=== PATIENT | male | born 1940 | race Caucasian/White ===

== ENCOUNTER 2016-12-04 13:23 | Inpatient (IN) | payer MEDICARE ==
[~2016-12-04] VITALS: Ht 177.8 cm; Wt 85.1 kg
[2016-12-04] MEDS ORDERED: INSU100I28 SQ (13:52)
[2016-12-04] MEDS ORDERED: FENO160T PO (13:52)
[2016-12-04] MEDS ORDERED: AMLO10TA2 PO (13:52)
[2016-12-04] MEDS ORDERED: INSU100V13 SQ (13:52)
[2016-12-04] MEDS ORDERED: ALPR0.254 PO (13:52)
[2016-12-04] MEDS ORDERED: INSU100V8 SQ (13:52)
[2016-12-04] MEDS ORDERED: LEVO100T5 PO (13:52)
[2016-12-04] MEDS ORDERED: HEPARIN 5,000 UNITS/ML, 1ML IV ONE (14:00)
[2016-12-04] MEDS ORDERED: HEPARIN 5,000 UNITS/ML, 1ML IV PRN (14:00)
[2016-12-04] MEDS ORDERED: HEPARIN 25,000 UNITS/500ML PMX 500 ML IV PRN (14:00)
[2016-12-04 14:11] LABS: IS PT STATUS REG ER OR PRE ER? YES
[2016-12-04] MEDS ORDERED: SODIUM CHLORIDE FLUSH 10ML SYR IVF PRN (14:30)
[2016-12-04] MEDS ORDERED: HEPARIN 25,000 UNITS/500ML PMX 500 ML ONE (14:44)
[2016-12-04] MEDS ORDERED: HEPARIN 5,000 UNITS/ML, 1ML ONE (14:44)
[2016-12-04 15:48] VITALS: BP 149/65
[2016-12-04 16:00] VITALS: BP 149/65
[2016-12-04] MEDS ORDERED: OMNIPAQUE 350 MG/ML, 100ML BOTTLE ONE (17:27)
[2016-12-04] MEDS: SODIUM CHLORIDE 0.9% 1,000 ML IV SCH (17:54)
[2016-12-04] MEDS ORDERED: ONDANSETRON 2MG/ML, 2ML IVPush PRN (19:00)
[2016-12-04] MEDS ORDERED: ENALAPRILAT 1.25 MG/ML, 2ML IVPush PRN (19:00)
[2016-12-04] MEDS ORDERED: OXYcodone IR 5MG TABLET PO PRN (19:00)
[2016-12-04] MEDS ORDERED: hydrALAzine 20 MG/ML, 1ML IVPush PRN (19:00)
[2016-12-04] MEDS ORDERED: POLYETHYLENE GLYCOL 17 GM PACKET PO PRN (19:00)
[2016-12-04] MEDS ORDERED: BISACODYL 10 MG SUPP PR PRN (19:00)
[2016-12-04] MEDS ORDERED: TEMAZEPAM 15 MG CAPSULE PO PRN (19:00)
[2016-12-04] MEDS ORDERED: DOCUSATE 100 MG CAPSULE PO PRN (19:00)
[2016-12-04 19:37] VITALS: BP 135/80
[2016-12-04] MEDS: ATORVASTATIN 20 MG TABLET PO SCH (20:50)
[2016-12-04] MEDS: LISINOPRIL 5 MG TABLET PO SCH (20:50)
[2016-12-04] MEDS: INSULIN DETEMIR 100 UNITS/ML, PEN SQ-INSULIN SCH (21:00)
[2016-12-04] MEDS: INSULIN ASPART 100 UNITS/ML, PEN SQ-INSULIN SCH (21:34)
[2016-12-04] MEDS: NITROGLYCERIN OINT 2%, 1GM TP SCH (21:53)
[2016-12-04] MEDS ORDERED: GUAIFENESIN/DM 100-10MG, 5ML UDC PO PRN (22:00)
[2016-12-05 02:01] VITALS: BP 124/66
[2016-12-05] MEDS: SODIUM CHLORIDE 0.9% 1,000 ML IV SCH ×2 (03:57→14:31)
[2016-12-05] MEDS: ASPIRIN 81 MG TABLET EC PO SCH (03:57)
[2016-12-05] MEDS: NITROGLYCERIN OINT 2%, 1GM TP SCH ×3 (03:57→15:49)
[2016-12-05 05:10] LABS: HEMATOCRIT 37.1 % (39.2-51.8); HEMOGLOBIN 12.5 g/dL (13.7-18.0); WHITE BLOOD COUNT 7.7 x10^3/uL (3.4-10)
[2016-12-05 05:21] LABS: BLOOD UREA NITROGEN 39 mg/dL (7-18)
[2016-12-05] MEDS ORDERED: DEXTROSE 50%, 50ML SYRINGE ONE (06:05)
[2016-12-05 06:08] LABS: IS PT STATUS REG ER OR PRE ER? NO
[2016-12-05] MEDS ORDERED: DEXTROSE 50%, 50ML SYRINGE IVPush ONE (06:30)
[2016-12-05] MEDS ORDERED: DEXTROSE 4 GM TAB.CHEW PO PRN (06:30)
[2016-12-05] MEDS ORDERED: GLUCAGON 1 MG IM PRN (06:30)
[2016-12-05] MEDS ORDERED: DEXTROSE 50%, 50ML SYRINGE IVPush PRN (06:30)
[2016-12-05] MEDS: INSULIN ASPART 100 UNITS/ML, PEN SQ-INSULIN SCH ×4 (07:42→20:32)
[2016-12-05] MEDS: INSULIN DETEMIR 100 UNITS/ML, PEN SQ-INSULIN SCH (07:43)
[2016-12-05 08:30] VITALS: BP 119/67
[2016-12-05] MEDS: LEVOTHYROXINE 100 MCG TABLET PO SCH (08:30)
[2016-12-05] MEDS: LISINOPRIL 5 MG TABLET PO SCH ×2 (08:30→20:31)
[2016-12-05] MEDS ORDERED: FENOFIBRATE 145 MG TABLET PO SCH (09:00)
[2016-12-05] MEDS: SODIUM CHLORIDE FLUSH 10ML SYR IVF SCH ×2 (09:30→19:59)
[2016-12-05] MEDS ORDERED: FENTANYL PF 100 MCG/2ML ONE (12:14)
[2016-12-05] MEDS ORDERED: MIDAZOLAM 1 MG/ML, 5ML ONE (12:15)
[2016-12-05] MEDS ORDERED: NITROGLYCERIN 5 MG/ML, 10ML ONE (12:15)
[2016-12-05] MEDS ORDERED: VERAPAMIL 2.5 MG/ML, 2ML ONE (12:15)
[2016-12-05] MEDS ORDERED: HEPARIN 1,000 UNITS/ML, 10ML ONE (12:15)
[2016-12-05] MEDS ORDERED: LIDOCAINE 2%, 20ML ONE (12:15)
[2016-12-05] MEDS ORDERED: BIVALIRUDIN 250 MG ONE (12:15)
[2016-12-05] MEDS ORDERED: TICAGRELOR 90 MG TABLET ONE (13:44)
[2016-12-05] MEDS ORDERED: BIVALIRUDIN 250 MG in DEXTROSE 5% 50 ML IV SCH (13:54)
[2016-12-05] MEDS: OXYMETAZOLINE NASAL SPRAY 0.05%, 15ML NAS PRN (15:56)
[2016-12-05] MEDS: HYDROmorphone 1 MG/ML, 1ML IV PRN ×2 (17:29→20:32)
[2016-12-05 19:10] VITALS: BP 157/85
[2016-12-05] MEDS: INSULIN GLARGINE SQ SCH (20:27)
[2016-12-05] MEDS: [UNRECOGNIZED DRUG - OTHER] SQ SCH (20:27)
[2016-12-05] MEDS: ATORVASTATIN 20 MG TABLET PO SCH (20:29)
[2016-12-05] MEDS: TICAGRELOR 90 MG TABLET PO SCH (20:29)
[2016-12-06 02:15] VITALS: BP 165/82
[2016-12-06 05:28] LABS: HEMOGLOBIN 13.2 g/dL (13.7-18.0)
[2016-12-06 05:38] LABS: BLOOD UREA NITROGEN 25 mg/dL (7-18)
[2016-12-06] MEDS: [UNRECOGNIZED DRUG - OTHER] SQ SCH (07:30)
[2016-12-06] MEDS: LISINOPRIL 5 MG TABLET PO SCH (07:30)
[2016-12-06] MEDS: TICAGRELOR 90 MG TABLET PO SCH (07:30)
[2016-12-06] MEDS: INSULIN ASPART 100 UNITS/ML, PEN SQ-INSULIN SCH ×2 (07:30→11:30)
[2016-12-06] MEDS: ASPIRIN 81 MG TABLET EC PO SCH (07:30)
[2016-12-06] MEDS: SODIUM CHLORIDE FLUSH 10ML SYR IVF SCH (07:30)
[2016-12-06] MEDS: INSULIN GLARGINE SQ SCH (07:30)
[2016-12-06] MEDS: LEVOTHYROXINE 100 MCG TABLET PO SCH (07:30)
[2016-12-06 08:30] VITALS: BP 163/71
[2016-12-06] MEDS: OXYMETAZOLINE NASAL SPRAY 0.05%, 15ML NAS PRN (09:24)
[2016-12-06] MEDS ORDERED: ASPI-621 PO (11:39)
[2016-12-06] MEDS ORDERED: LISI5TAB7 PO (11:39)
[2016-12-06] MEDS ORDERED: METO25TA35 PO (11:39)
[2016-12-06] MEDS ORDERED: ATOR20TA9 PO (11:39)
[2016-12-06] MEDS ORDERED: TICA90TA PO (11:39)
[2016-12-06] MEDS ORDERED: METOPROLOL TARTRATE 25 MG TABLET PO SCH (18:00)
== END 2016-12-06 13:22 | disposition home or self-care (01) | DRG 247 ==
LOC: ED 14:10 → EDIP 14:17 → ED 14:34 → 5SO 15:33 → DCLOUNGE 12-06 13:00
PROVIDERS: ADMIT Internal Medicine; ATTEND Hospitalist
PROC: 027135Z Dilation of Coronary Artery, Two Arteries with Two Drug-eluting Intraluminal Devices, Percutaneous Approach (ICD-10-PCS; principal; 2016-12-05)
PROC: 4A023N7 Measurement of Cardiac Sampling and Pressure, Left Heart, Percutaneous Approach (ICD-10-PCS; 2016-12-05)
PROC: B2111ZZ Fluoroscopy of Multiple Coronary Arteries using Low Osmolar Contrast (ICD-10-PCS; 2016-12-05)
PROC: B2151ZZ Fluoroscopy of Left Heart using Low Osmolar Contrast (ICD-10-PCS; 2016-12-05)
DX: I21.4 Non-ST elevation (NSTEMI) myocardial infarction (principal); J90 Pleural effusion, not elsewhere classified; E11.65 Type 2 diabetes mellitus with hyperglycemia; I27.2 Other secondary pulmonary hypertension; T82.855A Stenosis of coronary artery stent, initial encounter; I08.2 Rheumatic disorders of both aortic and tricuspid valves; E03.9 Hypothyroidism, unspecified; E78.1 Pure hyperglyceridemia; E78.5 Hyperlipidemia, unspecified; F41.9 Anxiety disorder, unspecified; I10 Essential (primary) hypertension; I25.10 Atherosclerotic heart disease of native coronary artery without angina pectoris; I25.5 Ischemic cardiomyopathy; Y83.1 Surgical operation with implant of artificial internal device as the cause of abnormal reaction of the patient, or of later complication, without mention of misadventure at the time of the procedure; Z79.4 Long term (current) use of insulin; Z79.82 Long term (current) use of aspirin; Z80.1 Family history of malignant neoplasm of trachea, bronchus and lung; Z80.8 Family history of malignant neoplasm of other organs or systems; Z86.73 Personal history of transient ischemic attack (TIA), and cerebral infarction without residual deficits; Z87.891 Personal history of nicotine dependence; Z95.0 Presence of cardiac pacemaker; Z88.2 Allergy status to sulfonamides; Z88.6 Allergy status to analgesic agent
CPT/HCPCS: 36415; 71275; 80048; 80061; 81001; 82962; 83036; 83735; 84439; 84443; 84484; 85025; 85520; 85610; 87086; 93005; 93306; 93458; 96365; 99156; 99157; C1894; C9600; J0583; J1170; J1644; J1815; J2250; J3010; J3490; Q9967; C1725; C1769; C1874; C1887; J7030

== ENCOUNTER 2018-03-14 14:07 | Emergency (ER) | payer MEDICARE, OTHER ==
[~2018-03-14] VITALS: Ht 175.3 cm; Wt 73.5 kg
[~2018-03-14 14:07] MED LIST: ALPR0.254 PO; AMLO10TA6 PO; ASPI81TA45 PO; ATOR20TA37 PO; FENO160T PO; INSU100I28 SQ; INSU100V13 SQ; INSU100V8 SQ; LEVO100T5 PO; LISI5TAB7 PO; METO25TA35 PO; TICA90TA PO
[2018-03-14 15:05] LABS: BASOPHILS # (AUTO) 0.02 x10^3/uL (0-0.1); BASOPHILS % (AUTO) 0 % (0-1); EOSINOPHILS % (AUTO) 3 % (1-7); LYMPHOCYTES % (AUTO) 12 % (22-44); MD NO; MEAN CORPUSCULAR HEMOGLOBIN 31.4 pg (27.5-34.5); MEAN CORPUSCULAR HGB CONC 33.1 g/dL (33.2-36.2); MEAN CORPUSCULAR VOLUME 94.7 fL (81-97); MONOCYTES % (AUTO) 9 % (2-9); NEUTROPHILS # (AUTO) 7.53 x10^3/uL (1.8-6.8); NEUTROPHILS % (AUTO) 76 % (42-75); PLATELET COUNT 245 x10^3/uL (130-400); RED BLOOD COUNT 4.92 x10^6/uL (4.38-5.82); RED CELL DISTRIBUTION WIDTH 14.3 % (9.4-14.8)
[2018-03-14 15:48] LABS: ALANINE AMINOTRANSFERASE 24 U/L (12-78); ALBUMIN 2.7 g/dL (3.4-5.0); ANION GAP 5 mmol/L (5-15); CALCIUM 8.3 mg/dL (8.5-10.1); CHLORIDE 105 mmol/L (98-107); CREATININE 1.31 mg/dL (0.7-1.3)
[2018-03-14 15:52] LABS: ALKALINE PHOSPHATASE 71 U/L (45-117); BILIRUBIN,TOTAL 0.6 mg/dL (0.2-1.0); TOTAL PROTEIN 6.3 g/dL (6.4-8.2); TROPONIN I 0.029 ng/mL (0.000-0.045)
[2018-03-14] MEDS ORDERED: SODIUM CHLORIDE FLUSH 10ML SYR IVF ONE (16:00)
[2018-03-14 16:20] LABS: INTERNATIONAL NORMALIZED RATIO 0.94 (0.93-1.1)
[2018-03-14 16:36] LABS: MICROSCOPIC AUTO
[2018-03-14 16:43] LABS: CULTURE INDICATED? NO
[2018-03-14 17:10] VITALS: BP 168/79
[2018-03-14] MEDS ORDERED: OMNIPAQUE 350 MG/ML, 100ML BOTTLE ONE (17:36)
== END 2018-03-14 19:06 | disposition home or self-care (01) ==
LOC: ED 16:35
DX: R07.9 Chest pain, unspecified (principal); M25.512 Pain in left shoulder; M25.511 Pain in right shoulder; R10.84 Generalized abdominal pain; R10.2 Pelvic and perineal pain; I25.2 Old myocardial infarction; E11.9 Type 2 diabetes mellitus without complications; Z90.89 Acquired absence of other organs; Z90.49 Acquired absence of other specified parts of digestive tract
CPT/HCPCS: 36415; 74177; 80053; 81001; 83605; 84484; 85025; 85610; 85730; 87040; 93005; 93922; 99284; Q9967

== ENCOUNTER → 2018-08-17 | Outpatient (CLI) | payer MEDICARE, OTHER ==
[~2018-08-17] MED LIST changes: -AMLO10TA6 PO; +AMLO10TA8 PO; +CLOP75TA52 PO; +DOXY50CA42 PO; +EMPA1TAB PO; +HYDR200T72 PO; +INSU100I32 SQ-INSULIN; +REGADENOSON 0.4 MG/5 ML SYRINGE ONE
== END | disposition home or self-care (01) ==
LOC: RAD 11:23
PROVIDERS: ATTEND Internal Medicine Cardiovascular Disease
DX: R07.89 Other chest pain (principal); I35.2 Nonrheumatic aortic (valve) stenosis with insufficiency
CPT/HCPCS: 78452; 93017; A9502; J2785

== ENCOUNTER 2018-09-13 08:51 | Day surgery (SDC) | payer MEDICARE, OTHER ==
[~2018-09-13] VITALS: Ht 177.8 cm; Wt 63.5 kg
[~2018-09-13 08:51] MED LIST changes: -REGADENOSON 0.4 MG/5 ML SYRINGE ONE
[2018-09-13] MEDS ORDERED: SODIUM CHLORIDE 0.9% 500 ML IV PRN (09:32)
[2018-09-13 09:38] VITALS: BP 202/113
[2018-09-13] MEDS ORDERED: PLEASE ENTER HEIGHT AND WEIGHT MC SCH (10:00)
[2018-09-13] MEDS ORDERED: PROPOFOL 10 MG/ML, 20ML ONE (13:31)
== END 2018-09-13 14:29 | disposition home or self-care (01) ==
LOC: CACL 08:51
PROVIDERS: ATTEND Internal Medicine Cardiovascular Disease
DX: I08.3 Combined rheumatic disorders of mitral, aortic and tricuspid valves (principal); I11.9 Hypertensive heart disease without heart failure; I25.2 Old myocardial infarction; J90 Pleural effusion, not elsewhere classified; E11.9 Type 2 diabetes mellitus without complications; F32.9 Major depressive disorder, single episode, unspecified; E78.5 Hyperlipidemia, unspecified; Z88.2 Allergy status to sulfonamides; Z95.0 Presence of cardiac pacemaker; Z95.5 Presence of coronary angioplasty implant and graft; Z79.899 Other long term (current) drug therapy; Z79.890 Hormone replacement therapy
CPT/HCPCS: 93312; 93325; J2704

== ENCOUNTER 2018-09-17 10:32 | Observation (INO) | payer MEDICARE, OTHER ==
[~2018-09-17] VITALS: Ht 182.9 cm; Wt 67.8 kg
[2018-09-17 11:42] VITALS: BP 213/104
[2018-09-17 12:22] LABS: ANION GAP 12 mmol/L (5-15); CALCIUM 8.1 mg/dL (8.5-10.1); CHLORIDE 111 mmol/L (98-107); CREATININE 1.28 mg/dL (0.7-1.3)
[2018-09-17] MEDS ORDERED: hydrALAzine 20 MG/ML, 1ML ONE (12:50)
[2018-09-17] MEDS ORDERED: hydrALAzine 20 MG/ML, 1ML IV ONE (13:00)
[2018-09-17] MEDS ORDERED: hydrALAzine 20 MG/ML, 1ML IV PRN (14:30)
[2018-09-17 16:54] VITALS: BP 103/63
[2018-09-17] MEDS: SODIUM CHLORIDE 0.9% 1,000 ML IV SCH ×2 (17:12→21:22)
[2018-09-17 19:35] VITALS: BP 113/54
[2018-09-17] MEDS ORDERED: ATORVASTATIN 40 MG TABLET PO SCH (21:00)
[2018-09-17] MEDS: METOPROLOL TARTRATE 25 MG TABLET PO SCH (21:16)
[2018-09-17] MEDS: INSULIN GLARGINE 100 UNITS/ML, PEN SQ-INSULIN SCH (21:16)
[2018-09-18 00:45] VITALS: BP 161/85
[2018-09-18] MEDS ORDERED: OXYcodone IR 5MG TABLET PO PRN (01:30)
[2018-09-18] MEDS: ACETAMINOPHEN 325 MG TABLET PO PRN ×2 (01:32→08:36)
[2018-09-18 01:33] VITALS: BP 151/96
[2018-09-18 04:27] LABS: ANION GAP 9 mmol/L (5-15); CALCIUM 7.4 mg/dL (8.5-10.1); CHLORIDE 112 mmol/L (98-107)
[2018-09-18] MEDS ORDERED: LEVOTHYROXINE 100 MCG TABLET PO SCH (06:00)
[2018-09-18] MEDS: SODIUM CHLORIDE 0.9% 1,000 ML IV SCH ×2 (06:21→13:35)
[2018-09-18 08:10] VITALS: BP 152/80
[2018-09-18] MEDS: METOPROLOL TARTRATE 25 MG TABLET PO SCH (08:25)
[2018-09-18] MEDS: INSULIN GLARGINE 100 UNITS/ML, PEN SQ-INSULIN SCH (08:26)
[2018-09-18] MEDS ORDERED: ASPIRIN 81 MG TABLET EC PO SCH (09:00)
[2018-09-18] MEDS ORDERED: [UNRECOGNIZED DRUG - OTHER] HOMEMEDPO SCH (09:00)
[2018-09-18] MEDS ORDERED: EMPAGLIFLOZIN HOMEMEDPO SCH (09:00)
[2018-09-18] MEDS ORDERED: CLOPIDOGREL 75 MG TABLET PO SCH (09:00)
[2018-09-18] MEDS ORDERED: LINAGLIPTIN HOMEMEDPO SCH (09:00)
[2018-09-18] MEDS ORDERED: FENOFIBRATE 145 MG TABLET PO SCH (09:00)
[2018-09-18] MEDS ORDERED: AMLODIPINE 2.5 MG TABLET PO SCH (09:00)
[2018-09-18] MEDS ORDERED: ASPI81TA45 PO (10:08)
[2018-09-18] MEDS ORDERED: ACET325T26 PO (10:08)
[2018-09-18] MEDS ORDERED: CLOP75TA PO (10:08)
[2018-09-18] MEDS ORDERED: INSULIN LISPRO 100 UNITS/ML, PEN SQ-INSULIN SCH (11:00)
[2018-09-18 13:59] VITALS: BP 161/75
== END 2018-09-18 14:55 | disposition home or self-care (01) ==
LOC: CACL 10:32 → 5SO 15:21 → CACL 17:22 → DCLOUNGE 09-18 14:38
PROVIDERS: ADMIT Internal Medicine Cardiovascular Disease; ATTEND Internal Medicine Cardiovascular Disease
DX: I25.119 Atherosclerotic heart disease of native coronary artery with unspecified angina pectoris (principal); I35.0 Nonrheumatic aortic (valve) stenosis; E11.9 Type 2 diabetes mellitus without complications; E78.5 Hyperlipidemia, unspecified; I10 Essential (primary) hypertension; Z79.899 Other long term (current) drug therapy
CPT/HCPCS: 36415; 80048; 82962; 85014; 85018; 92920; 93458; 96372; 96374; 97161; 97165; 99156; 99157; C1725; C1769; C1887; C1894; G0378; J0360; J0583; J1644; J1815; J2250; J3010; J3490; Q9967; 92928

== ENCOUNTER 2018-09-28 17:12 | Emergency (ER) | payer MEDICARE, OTHER ==
[~2018-09-28] VITALS: Ht 182.9 cm; Wt 69.0 kg
[2018-09-28 17:14] VITALS: BP 152/80
== END 2018-09-28 19:40 | disposition home or self-care (01) ==
LOC: ED 18:34
DX: M79.641 Pain in right hand (principal); I10 Essential (primary) hypertension; E11.9 Type 2 diabetes mellitus without complications; I25.2 Old myocardial infarction; Z90.89 Acquired absence of other organs; Z90.49 Acquired absence of other specified parts of digestive tract
CPT/HCPCS: 99281; 99285

== ENCOUNTER 2018-10-31 10:28 | Outpatient (CLI) | payer MEDICARE, OTHER ==
[~2018-10-31 10:28] MED LIST changes: +ACET325T26 PO; +ASPI81TA50 PO; +CLOP75TA PO; +FURO-93 PO
[2018-10-31] MEDS ORDERED: VISIPAQUE 320 MG/ML, 150ML BOTTLE ONE (12:55)
[2018-11-13] MEDS ORDERED: OMEP40CA6 PO (07:00)
[2018-11-13] MEDS ORDERED: ALPR0.5T7 PO (07:00)
[2018-11-13] MEDS ORDERED: INSU200I4 SC (07:04)
[2018-11-13] MEDS ORDERED: Magnesium PO (07:06)
[2018-11-13] MEDS ORDERED: CHOL5000 PO (07:06)
[2018-11-13] MEDS ORDERED: IBUP200C8 PO (07:06)
[2018-11-13] MEDS ORDERED: C TESTOSTERONE TP (07:11)
[2018-12-11] MEDS ORDERED: AMLO10TA8 PO (14:48)
[2018-12-11] MEDS ORDERED: LEVO137T2 PO (14:49)
[2018-12-11] MEDS ORDERED: EMPA1TAB PO (14:49)
[2018-12-11] MEDS ORDERED: OMEP-110 PO (15:07)
[2018-12-11] MEDS ORDERED: INSU200I4 SQ-INSULIN (15:07)
[2018-12-11] MEDS ORDERED: SAW PALMETTO PO (15:07)
[2018-12-14] MEDS ORDERED: LEVO137T2 PO (15:36)
[2018-12-14] MEDS ORDERED: HYDR-3341 PO (15:39)
[2018-12-14] MEDS ORDERED: OMEG1CAP6 PO (15:42)
== END 2018-10-31 23:59 | disposition home or self-care (01) ==
LOC: RAD 10:28
PROVIDERS: ATTEND Internal Medicine Cardiovascular Disease
DX: I70.0 Atherosclerosis of aorta (principal); I77.819 Aortic ectasia, unspecified site; M51.34 Other intervertebral disc degeneration, thoracic region; M48.54XA Collapsed vertebra, not elsewhere classified, thoracic region, initial encounter for fracture; N28.1 Cyst of kidney, acquired; I65.23 Occlusion and stenosis of bilateral carotid arteries; J98.4 Other disorders of lung
CPT/HCPCS: 71275; 74174; 93880; 94060; 94729; Q9967

== ENCOUNTER 2019-05-27 10:37 | Day surgery (SDC) | payer MEDICARE, OTHER ==
[~2019-05-27] VITALS: Ht 175.3 cm; Wt 60.0 kg
[~2019-05-27 10:37] MED LIST changes: +ALPR0.5T7 PO; +C TESTOSTERONE TP; +CARV6.2512 PO; +CHOL5000 PO; +CIPR2.5D RIGHTEYE; +FURO40TA6 PO; +HEPA50002 SQ; +HYDR-3341 PO; +IBUP200C8 PO; +INSU100I13 SQ-INSULIN; +INSU200I4 SC; +INSU200I4 SQ-INSULIN; +LEVO137T2 PO; +LIOT5TAB10 PO; +LISI-170 PO; +Magnesium PO; +OMEG1CAP6 PO; +OMEP-110 PO; +OMEP40CA42 PO; +POLY17PO5 PO; +SAW PALMETTO PO; +SENN-193 PO; +SPIR25TA PO
[2019-05-27] MEDS ORDERED: SODIUM CHLORIDE 0.9% 1,000 ML IV SCH (11:06)
[2019-05-27] MEDS ORDERED: CARV12.52 PO (11:25)
[2019-05-27] MEDS ORDERED: LISI-170 PO (11:25)
[2019-05-27] MEDS ORDERED: [UNRECOGNIZED DRUG - OTHER] PO (11:26)
[2019-05-27] MEDS ORDERED: IBUP-1902 PO (11:26)
[2019-05-27] MEDS ORDERED: HYDR-2995 PO (11:26)
[2019-05-27] MEDS ORDERED: INSU100I13 SQ ×2 (11:26)
[2019-05-27] MEDS ORDERED: MULT-658 PO (11:26)
[2019-05-27] MEDS ORDERED: MELA1TAB15 PO (11:26)
[2019-05-27] MEDS ORDERED: MECL12.581 PO (11:26)
[2019-05-27] MEDS ORDERED: MIDAZOLAM 1 MG/ML, 2ML ONE (12:14)
[2019-05-27] MEDS ORDERED: LIDOCAINE 1%, 20ML ONE (12:15)
[2019-05-27] MEDS ORDERED: FENTANYL PF 100 MCG/2ML ONE (12:15)
[2019-05-27] MEDS ORDERED: CEFAZOLIN 1,000 MG ONE (12:16)
[2019-05-27] MEDS ORDERED: CEFAZOLIN PMX 1GM/50ML 50 ML ONE (12:16)
== END 2019-05-27 15:22 | disposition home or self-care (01) ==
LOC: CACL 10:37
PROVIDERS: ATTEND Internal Medicine Cardiovascular Disease
DX: Z45.010 Encounter for checking and testing of cardiac pacemaker pulse generator [battery] (principal); I35.2 Nonrheumatic aortic (valve) stenosis with insufficiency; I25.5 Ischemic cardiomyopathy; I10 Essential (primary) hypertension; E11.9 Type 2 diabetes mellitus without complications; E78.2 Mixed hyperlipidemia; I25.10 Atherosclerotic heart disease of native coronary artery without angina pectoris; I25.2 Old myocardial infarction; Z79.82 Long term (current) use of aspirin; Z79.890 Hormone replacement therapy; Z79.899 Other long term (current) drug therapy; Z88.2 Allergy status to sulfonamides; Z88.8 Allergy status to other drugs, medicaments and biological substances; Z95.5 Presence of coronary angioplasty implant and graft
CPT/HCPCS: 33228; 82962; 99156; 99157; C1785; J0690; J2250; J3010

== ENCOUNTER → 2019-05-30 | Outpatient (CLI) | payer MEDICARE, OTHER ==
[~2019-05-30] MED LIST changes: +CARV12.52 PO; +HYDR-2995 PO; +IBUP-1902 PO; +INSU100I13 SQ; +MECL12.581 PO; +MELA1TAB15 PO; +MULT-658 PO; +[UNRECOGNIZED DRUG - OTHER] PO
== END | disposition home or self-care (01) ==
LOC: CVU 13:35
PROVIDERS: ATTEND Registered Nurse
DX: I08.1 Rheumatic disorders of both mitral and tricuspid valves (principal); I11.9 Hypertensive heart disease without heart failure; I65.23 Occlusion and stenosis of bilateral carotid arteries
CPT/HCPCS: 93306; 93880